=== PATIENT | female | born 1995 | race Caucasian/White ===

== ENCOUNTER → 2025-05-24 | Outpatient (CLI) | payer OTHER, SELFPAY ==
--- OUTSIDE RECORDS SUMMARY | 2025-05-24 21:05 | XMS RPT_ITS | CCD ---
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 Up [171] Fracture [4131] Primary Visit Diagnosis:Closed left ankle fracture, with routine healing, subsequent encounter [Z07.583Q] Prescriptions as of 10/29/2022 - busPIRone (BUSPAR) 5 mg tablet Take 5 mg by mouth twice daily. - sertraline (ZOLOFT) 50 mg tablet sertraline 50 mg tablet TAKE 1 TABLET BY MOUTH DAILY - amitriptyline (ELAVIL) 25 mg tablet Take 25 mg by mouth daily at bedtime. - crutches, aluminum Use as directed. Problem List As Of Date: 10/29/2022 (None) Other instructions from your clinician: You can discontinue wearing the walking boot at night or around the house. You should continue to wear it for the next 2 weeks when you are at work or out and about. After 2 weeks if you are pain-free you can discontinue the boot and increase activity as tolerated. Follow-up if there are any further concerns. Visit Notes: >> Elba Cummings MA Karly Oct 29, 2022 9:22 AM Status: Signed Pt is here for left foot pain. Pt is 5 weeks out from fracturing her foot. Pt states that she feels a whole lot better. Pt denies any pain. Disposition: Return if symptoms worsen or fail to improve. Follow-up and Disposition History for Encounter Date Provider Department Center 10/29/2022 [id number] Encounter Status:Closed by STEFANIE MCINTOSH on 10/29/22 [facility] XR ANKLE 3V AP/LAT/OBL LTon 10-29-2022 XR ANKLE 3V AP/LAT/OBL LT * * *Final Report* * * DATE OF EXAM: Oct 29 2022 9:20AM RNX [id number] - XR ANKLE 3V AP/LAT/OBL LT / PROCEDURE REASON: Pain * * * * Physician Interpretation * * * * XR ANKLE 3V AP/LAT/OBL LT Ordering Physician: STEFANIE MCINTOSH LEFT ANKLE 3 VIEWS Clinical Statement: Pain Comparison: 09/27/2022 FINDINGS: Again demonstrated is an oblique fracture of the distal fibula at the level of the ankle mortise. There has been slight interval osseous remodeling with no significant callus formation. The distal fracture demonstrates minimal lateral displacement measuring less than 2 mm. Fracture lines remaining clearly visible. The ankle mortise is intact. There are no new fractures. IMPRESSION: Oblique fracture distal fibula with mild interval osseous remodeling and no significant callus formation. Fracture lines remain visible. Software Tester: [email or web address] Transcribe Date/Time: Oct 29 2022 9:50A Dictated by : JEFFERY STAPLETON MD This examination was interpreted and the report reviewed and electronically signed by: JEFFERY STAPLETON MD on Oct 29 2022 9:52AM EST [id number] CN [facility] XR Ankle - left AP and Later al and obliqueon 10-29-2022 IMPRESSION: Oblique fracture distal fibula with mild interval osseous remodeling and no significant callus formation. Fracture lines remain visible. Software Tester: [email or web address] Transcribe Date/Time: Oct 29 2022 9:50A Dictated by : JEFFERY STAPLETON MD This examination was interpreted and the report reviewed and electronically signed by: JEFFERY STAPLETON MD on Oct 29 2022 9:52AM EST [facility] * * *Final Report* * * DATE OF EXAM: Oct 29 2022 9:20AM RNX [id number] - XR ANKLE 3V AP/LAT/OBL LT / PROCEDURE REASON: Pain * * * * Physician Interpretation * * * * XR ANKLE 3V AP/LAT/OBL LT Ordering Physician: STEFANIE MCINTOSH LEFT ANKLE 3 VIEWS Clinical Statement: Pain Comparison: 09/27/2022 FINDINGS: Again demonstrated is an oblique fracture of the distal fibula at the level of the ankle mortise. There has been slight interval osseous remodeling with no significant callus formation. The distal fracture demonstrates minimal lateral displacement measuring less than 2 mm. Fracture lines remaining clearly visible. The ankle mortise is intact. There are no new fractures. [facility] Provider, [facility] [place] - 10/29/2022 * * *Final Report* * * DATE OF EXAM: Oct 29 2022 9:20AM RNX [id number] - XR ANKLE 3V AP/LAT/OBL LT / PROCEDURE REASON: Pain * * * * Physician Interpretation * * * * XR ANKLE 3V AP/LAT/OBL LT Ordering Physician: STEFANIE MCINTOSH LEFT ANKLE 3 VIEWS Clinical Statement: Pain Comparison: 09/27/2022 FINDINGS: Again demonstrated is an oblique fracture of the distal fibula at the level of the ankle mortise. There has been slight interval osseous remodeling with no significant callus formation. The distal fracture demonstrates minimal lateral displacement measuring less than 2 mm. Fracture lines remaining clearly visible. The ankle mortise is intact. There are no new fractures. IMPRESSION IMPRESSION: Oblique fracture distal fibula with mild interval osseous remodeling and no significant callus formation. Fracture lines remain visible. Software Tester: [employer] Transcribe Date/Time: Oct 29 2022 9:50A Dictated by : JEFFERY STAPLETON MD This examination was interpreted and the report reviewed and electronically signed by: JEFFERY STAPLETON MD on Oct 29 2022 9:52AM EST [facility] Radiology Study observation (narrative) Brad brady [facility] XR Ankle - left AP and Later al and obliqueOrdered By: Ccf Provider on 10-29-2022 [facility] CNOVon 09-29-2022 CNOV Office Visit ([facility]) BLANCA JANE ([id number]) 1995 F Date Time Provider Department 09/29/22 9:00 AM STEFANIE MCINTOSH During your visit today, we recorded the following information about you: Pulse Weight 106/minute 72.6 kg Stefanie Mcintosh MD 09/29/2022 9:15 AM Signed Blanca Urszula Jane is a 27 year old presenting with Follow Up of the Left Ankle (Lt ankle fx// decreased swelling /10 pain) HPI: Injury occurred last week. Slipped on steps and twisted both ankles has a fracture of the left lateral ankle. Was seen at urgent care. She is put in an stirrup brace and on crutches. Review of Systems Neurological: Negative for sensory change and focal weakness. No past medical history on file. No family history on file. Tobacco Use: Low Risk Smoking Tobacco Use: Never Smokeless Tobacco Use: Never Passive Exposure: Not on file Alcohol Use: Not on file Current Outpatient Medications Medication Sig busPIRone (BUSPAR) 5 mg tablet Take 5 mg by mouth twice daily. sertraline (ZOLOFT) 50 mg tablet sertraline 50 mg tablet TAKE 1 TABLET BY MOUTH DAILY amitriptyline (ELAVIL) 25 mg tablet Take 25 mg by mouth daily at bedtime. crutches, aluminum Use as directed. No current facility-administere d medications for this visit. ALLERGIES No Known Allergies Pulse 106 Wt 160 lb (72.6kg) SpO2 97% LMP 09/13/2022 Physical Exam Musculoskeletal: Comments: Swelling and ecchymosis left ankle lateral malleolus. Tender distal fibula. Limited range of motion. Neurovascular is intact distally. X-rays show a spiral fracture of the distal fibula. Nondisplaced. Ankle mortise is intact. ASSESSMENT/PLAN: 1. Closed left ankle fracture, initial encounter - ICD9: 824.8, ICD10: S82.892A Patient was placed in a tall small walking boot. Patient is to wear the boot at all times other than to shower. She should use crutches for 1 to 2 weeks to assist with ambulation. Take Tylenol or Motrin for pain. Follow-up in 4 weeks for recheck. MD Stefanie Tirado MD 09/29/2022 9:11 AM Signed Wear the walking boot at all times other than to shower. Use crutches for the next 1 to 2 weeks to help with walking and weightbearing. Take Motrin or Tylenol for pain. Follow-up here in 4 weeks for recheck. Referring Provider: SELF [200] Allergies As of Date: 09/29/2022 (No Known Allergies) Date Reviewed: 09/27/2022 Reviewed by: Harvinder Mckeon MD - Fully Assessed Reason for Visit: Follow Up [171] Cmt: Lt ankle fx// decreased swelling 02/08 pain Primary Visit Diagnosis:Closed left ankle fracture, initial encounter [S82.892A] Prescriptions as of 09/29/2022 - busPIRone (BUSPAR) 5 mg tablet Take 5 mg by mouth twice daily. - sertraline (ZOLOFT) 50 mg tablet sertraline 50 mg tablet TAKE 1 TABLET BY MOUTH DAILY - amitriptyline (ELAVIL) 25 mg tablet Take 25 mg by mouth daily at bedtime. - crutches, aluminum Use as directed. Problem List As Of Date: 09/29/2022 (None) Other instructions from your clinician: Wear the walking boot at all times other than to shower. Use crutches for the next 1 to 2 weeks to help with walking and weightbearing. Take Motrin or Tylenol for pain. Follow-up here in 4 weeks for recheck. Disposition: Return for Imaging Before Appointment. Follow-up and Disposition History for Encounter Date Provider Department Center 09/29/2022 [id number] MCINTOSH [facility] Encounter Status:Closed by STEFANIE MCINTOSH on 09/29/22 [facility] No Panel Informationon 09-28 IMPRESSION: No acute osseous abnormality. LEFT FOOT 3 VIEWS: INDICATION: Sprain of foot, initial encounter FINDINGS: No fracture or dislocation involving the foot. Nondisplaced fibular fracture better shown on associated ankle radiographs.. The osseous structures are intact. IMPRESSION: No foot fracture identified. Distal fibular fracture better shown on associated ankle radiographs. LEFT ANKLE 3 VIEWS: INDICATION: Multiple diagnoses FINDINGS: Nondisplaced oblique fracture through the distal fibula extending proximally from the tibiotalar joint. No significant angulation or displacement. There is associated soft tissue swelling. IMPRESSION: Nondisplaced Aguila B fracture distal fibula. RIGHT ANKLE 3 VIEWS: INDICATION: Sprain of the ligament of right ankle, initial encounter FINDINGS: No fracture or dislocation. The osseous structures are intact. The alignment is normal. Soft tissue swelling noted. IMPRESSION: Soft tissue swelling. Negative for fracture. Software Tester: [employer] Transcribe Date/Time: Sep 28 2022 9:19A Dictated by : DANIEL MCKAY MD This examination was interpreted and the report reviewed and electronically signed by: DANIEL MCKAY MD on Sep 28 2022 9:25AM [facility] No Panel InformationOrdered By: Ccf Provider on 09-28-2022 [facility] XR Ankle - left AP and Later al and obliqueon 09-28-2022 * * *Final Report* * * DATE OF EXAM: Sep 27 2022 4:25PM [id number] [id number] - XR ANKLE 3V AP/LAT/OBL LT / PROCEDURE REASON: multiple diagnoses * * * * Physician Interpretation * * * * XR FOOT 3V AP/LAT/OBL RT, XR FOOT 3V AP/LAT/OBL LT, XR ANKLE 3V AP/LAT/OBL RT, XR ANKLE 3V AP/LAT/OBL LT Ordering Physician: HARVINDER MCKEON RIGHT FOOT 3 VIEWS Clinical Statement: Sprain of the ligament, initial encounter FINDINGS: No fracture or dislocation. The osseous structures are intact. The alignment is normal. [facility] Provider, [facility] [place] - 09/28/2022 * * *Final Report* * * DATE OF EXAM: Sep 27 2022 4:25PM [id number] [id number] - XR ANKLE 3V AP/LAT/OBL LT / PROCEDURE REASON: multiple diagnoses * * * * Physician Interpretation * * * * XR FOOT 3V AP/LAT/OBL RT, XR FOOT 3V AP/LAT/OBL LT, XR ANKLE 3V AP/LAT/OBL RT, XR ANKLE 3V AP/LAT/OBL LT Ordering Physician: HARVINDER MCKEON RIGHT FOOT 3 VIEWS Clinical Statement: Sprain of the ligament, initial encounter FINDINGS: No fracture or dislocation. The osseous structures are intact. The alignment is normal. IMPRESSION IMPRESSION: No acute osseous abnormality. LEFT FOOT 3 VIEWS: INDICATION: Sprain of foot, initial encounter FINDINGS: No fracture or dislocation involving the foot. Nondisplaced fibular fracture better shown on associated ankle radiographs.. The osseous structures are intact. IMPRESSION: No foot fracture identified. Distal fibular fracture better shown on associated ankle radiographs. LEFT ANKLE 3 VIEWS: INDICATION: Multiple diagnoses FINDINGS: Nondisplaced oblique fracture through the distal fibula extending proximally from the tibiotalar joint. No significant angulation or displacement. There is associated soft tissue swelling. IMPRESSION: Nondisplaced Aguila B fracture distal fibula. RIGHT ANKLE 3 VIEWS: INDICATION: Sprain of the ligament of right ankle, initial encounter FINDINGS: No fracture or dislocation. The osseous structures are intact. The alignment is normal. Soft tissue swelling noted. IMPRESSION: Soft tissue swelling. Negative for fracture. Software Tester: [employer] Transcribe Date/Time: Sep 28 2022 9:19A Dictated by : DANIEL MCKAY MD This examination was interpreted and the report reviewed and electronically signed by: DANIEL MCKAY MD on Sep 28 2022 9:25AM EST [facility] XR Ankle - right AP and Late ral and obliqueon 09-28-2022 * * *Final Report* * * DATE OF EXAM: Sep 27 2022 4:25PM [id number] [id number] - XR ANKLE 3V AP/LAT/OBL RT / PROCEDURE REASON: Sprain of ligament of right ankle, initial encounter * * * * Physician Interpretation * * * * XR FOOT 3V AP/LAT/OBL RT, XR FOOT 3V AP/LAT/OBL LT, XR ANKLE 3V AP/LAT/OBL RT, XR ANKLE 3V AP/LAT/OBL LT Ordering Physician: HARVINDER MCKEON RIGHT FOOT 3 VIEWS Clinical Statement: Sprain of the ligament, initial encounter FINDINGS: No fracture or dislocation. The osseous structures are intact. The alignment is normal. [facility] Provider, [facility] [place] - 09/28/2022 * * *Final Report* * * DATE OF EXAM: Sep 27 2022 4:25PM [id number] [id number] - XR ANKLE 3V AP/LAT/OBL RT / PROCEDURE REASON: Sprain of ligament of right ankle, initial encounter * * * * Physician Interpretation * * * * XR FOOT 3V AP/LAT/OBL RT, XR FOOT 3V AP/LAT/OBL LT, XR ANKLE 3V AP/LAT/OBL RT, XR ANKLE 3V AP/LAT/OBL LT Ordering Physician: HARVINDER MCKEON RIGHT FOOT 3 VIEWS Clinical Statement: Sprain of the ligament, initial encounter FINDINGS: No fracture or dislocation. The osseous structures are intact. The alignment is normal. IMPRESSION IMPRESSION: No acute osseous abnormality. LEFT FOOT 3 VIEWS: INDICATION: Sprain of foot, initial encounter FINDINGS: No fracture or dislocation involving the foot. Nondisplaced fibular fracture better shown on associated ankle radiographs.. The osseous structures are intact. IMPRESSION: No foot fracture identified. Distal fibular fracture better shown on associated ankle radiographs. LEFT ANKLE 3 VIEWS: INDICATION: Multiple diagnoses FINDINGS: Nondisplaced oblique fracture through the distal fibula extending proximally from the tibiotalar joint. No significant angulation or displacement. There is associated soft tissue swelling. IMPRESSION: Nondisplaced Aguila B fracture distal fibula. RIGHT ANKLE 3 VIEWS: INDICATION: Sprain of the ligament of right ankle, initial encounter FINDINGS: No fracture or dislocation. The osseous structures are intact. The alignment is normal. Soft tissue swelling noted. IMPRESSION: Soft tissue swelling. Negative for fracture. Software Tester: [employer] Transcribe Date/Time: Sep 28 2022 9:19A Dictated by : DANIEL MCKAY MD This examination was interpreted and the report reviewed and electronically signed by: DANIEL MCKAY MD on Sep 28 2022 9:25AM [facility] XR Foot - left AP and Latera l and obliqueon 09-28-2022 * * *Final Report* * * DATE OF EXAM: Sep 27 2022 4:25PM [id number] [id number] - XR FOOT 3V AP/LAT/OBL LT / PROCEDURE REASON: Sprain of left foot, initial encounter * * * * Physician Interpretation * * * * XR FOOT 3V AP/LAT/OBL RT, XR FOOT 3V AP/LAT/OBL LT, XR ANKLE 3V AP/LAT/OBL RT, XR ANKLE 3V AP/LAT/OBL LT Ordering Physician: HARVINDER MCKEON RIGHT FOOT 3 VIEWS Clinical Statement: Sprain of the ligament, initial encounter FINDINGS: No fracture or dislocation. The osseous structures are intact. The alignment is normal. [facility] Provider, [facility] [place] - 09/28/2022 * * *Final Report* * * DATE OF EXAM: Sep 27 2022 4:25PM [id number] [id number] - XR FOOT 3V AP/LAT/OBL LT / PROCEDURE REASON: Sprain of left foot, initial encounter * * * * Physician Interpretation * * * * XR FOOT 3V AP/LAT/OBL RT, XR FOOT 3V AP/LAT/OBL LT, XR ANKLE 3V AP/LAT/OBL RT, XR ANKLE 3V AP/LAT/OBL LT Ordering Physician: HARVINDER MCKEON RIGHT FOOT 3 VIEWS Clinical Statement: Sprain of the ligament, initial encounter FINDINGS: No fracture or dislocation. The osseous structures are intact. The alignment is normal. IMPRESSION IMPRESSION: No acute osseous abnormality. LEFT FOOT 3 VIEWS: INDICATION: Sprain of foot, initial encounter FINDINGS: No fracture or dislocation involving the foot. Nondisplaced fibular fracture better shown on associated ankle radiographs.. The osseous structures are intact. IMPRESSION: No foot fracture identified. Distal fibular fracture better shown on associated ankle radiographs. LEFT ANKLE 3 VIEWS: INDICATION: Multiple diagnoses FINDINGS: Nondisplaced oblique fracture through the distal fibula extending proximally from the tibiotalar joint. No significant angulation or displacement. There is associated soft tissue swelling. IMPRESSION: Nondisplaced Aguila B fracture distal fibula. RIGHT ANKLE 3 VIEWS: INDICATION: Sprain of the ligament of right ankle, initial encounter FINDINGS: No fracture or dislocation. The osseous structures are intact. The alignment is normal. Soft tissue swelling noted. IMPRESSION: Soft tissue swelling. Negative for fracture. Software Tester: [employer] Transcribe Date/Time: Sep 28 2022 9:19A Dictated by : DANIEL MCKAY MD This examination was interpreted and the report reviewed and electronically signed by: DANIEL MCKAY MD on Sep 28 2022 9:25AM EST [facility] XR Foot - right AP and Later al and obliqueon 09-28-2022 * * *Final Report* * * DATE OF EXAM: Sep 27 2022 4:25PM [id number] [id number] - XR FOOT 3V AP/LAT/OBL RT / PROCEDURE REASON: multiple diagnoses * * * * Physician Interpretation * * * * XR FOOT 3V AP/LAT/OBL RT, XR FOOT 3V AP/LAT/OBL LT, XR ANKLE 3V AP/LAT/OBL RT, XR ANKLE 3V AP/LAT/OBL LT Ordering Physician: HARVINDER MCKEON RIGHT FOOT 3 VIEWS Clinical Statement: Sprain of the ligament, initial encounter FINDINGS: No fracture or dislocation. The osseous structures are intact. The alignment is normal. [facility] Provider, [facility] [place] - 09/28/2022 * * *Final Report* * * DATE OF EXAM: Sep 27 2022 4:25PM [id number] [id number] - XR FOOT 3V AP/LAT/OBL RT / PROCEDURE REASON: multiple diagnoses * * * * Physician Interpretation * * * * XR FOOT 3V AP/LAT/OBL RT, XR FOOT 3V AP/LAT/OBL LT, XR ANKLE 3V AP/LAT/OBL RT, XR ANKLE 3V AP/LAT/OBL LT Ordering Physician: HARVINDER MCKEON RIGHT FOOT 3 VIEWS Clinical Statement: Sprain of the ligament, initial encounter FINDINGS: No fracture or dislocation. The osseous structures are intact. The alignment is normal. IMPRESSION IMPRESSION: No acute osseous abnormality. LEFT FOOT 3 VIEWS: INDICATION: Sprain of foot, initial encounter FINDINGS: No fracture or dislocation involving the foot. Nondisplaced fibular fracture better shown on associated ankle radiographs.. The osseous structures are intact. IMPRESSION: No foot fracture identified. Distal fibular fracture better shown on associated ankle radiographs. LEFT ANKLE 3 VIEWS: INDICATION: Multiple diagnoses FINDINGS: Nondisplaced oblique fracture through the distal fibula extending proximally from the tibiotalar joint. No significant angulation or displacement. There is associated soft tissue swelling. IMPRESSION: Nondisplaced Aguila B fracture distal fibula. RIGHT ANKLE 3 VIEWS: INDICATION: Sprain of the ligament of right ankle, initial encounter FINDINGS: No fracture or dislocation. The osseous structures are intact. The alignment is normal. Soft tissue swelling noted. IMPRESSION: Soft tissue swelling. Negative for fracture. Software Tester: [employer] Transcribe Date/Time: Sep 28 2022 9:19A Dictated by : DANIEL MCKAY MD This examination was interpreted and the report reviewed and electronically signed by: DANIEL MCKAY MD on Sep 28 2022 9:25AM EST [facility] CNOVon 09-27-2022 CNOV Office Visit ([facility]) BLANCA JANE ([id number]) 1995 F Date Time Provider Department 09/27/22 1:30 PM HARVINDER MCKEON [facility] During your visit today, we recorded the following information about you: Temperature Pulse Respiration Blood pressure 97.2 degrees 97/minute 16/minute 150/81 Weight Last Period 72.6 kg 09/13/22 Harvinder Mckeon MD 09/27/2022 4:40 PM Signed Blanca Paniaguaopal is a 27 year old female who presents with bilat ankle pain (Swelling from fall) She is a 19-year-old female presenting today with bilateral ankle and bilateral foot pain after injury over Thanksgiving. She reports that she was in her porch when she missed a step twisting her ankles and feet. Left worse than right extremity. She has pain swelling bruising bilateral regions of both ankles and feet. She is able to bear weight. No prior injuries. History reviewed. No pertinent past medical history. There is no problem list on file for this patient. Current Outpatient Medications Medication Sig Dispense Refill busPIRone (BUSPAR) 5 mg tablet Take 5 mg by mouth twice daily. sertraline (ZOLOFT) 50 mg tablet sertraline 50 mg tablet TAKE 1 TABLET BY MOUTH DAILY amitriptyline (ELAVIL) 25 mg tablet Take 25 mg by mouth daily at bedtime. No current facility-administere d medications for this visit. Social History Tobacco Use Smoking status: Never Smokeless tobacco: Never Alcohol Use: Not on file Tobacco Use: Never History reviewed. No pertinent family history. Review of Systems Constitutional: Negative for fever. Respiratory: Negative for shortness of breath. Cardiovascular: Negative for chest pain. Musculoskeletal: Injuries bilateral ankle and feet. Neurological: Negative for dizziness and headaches. BP 150/81 Pulse 97 Temp (Src) 97.2 (Temporal) Resp 16 Wt 160 lb (72.6kg) SpO2 98% LMP 09/13/2022 Physical Exam Vitals and nursing note reviewed. Constitutional: Comments: PHYSICAL EXAMINATION: GENERAL:The patient is alert oriented in no acute distress. HEAD:Head is atraumatic normocephalic. EYES: Normal sclerae and conjunctivae. LUNGS: No labored breathing. MUSCULOSKELETAL: Examination of the ankles revealed bruising, swelling and tenderness mainly over the lateral malleoli. Examination of the feet revealed bruising and swelling along the medial and lateral regions of feet. She is able to move her toes. Neurovascular status intact distally. Bilateral Achilles tendon intact. She has full dorsiflexion, plantarflexion, inversion and eversion with pain. Neurovascular status intact distally. She is ambulatory. SKIN: Warm and dry no clubbing cyanosis or edema. NEUROLOGY: Cranial nerves II through XII grossly intact without any focal neurological deficits. PSYCHIATRY: Cooperative. Normal mood and affect. X-ray showed fracture left lateral malleolus. Normal right ankle and bilateral feet. Second read by the radiologist is pending. Aircast placed in the left ankle. I wrote a prescription of crutches. Patient was instructed to follow-up with musculoskeletal clinic she will call first thing in the morning tomorrow and get an appointment. If she does not get an appointment in the next week or so she will call [facility] or [facility] orthopedics. Rest ice elevation. OTC pain medication recommended. Discharged in stable condition. ASSESSMENT/PLAN: 1. Sprain of ligament of left ankle, initial encounter - ICD9: 845.00, ICD10: S93.402A (primary diagnosis) - XR ANKLE GENERAL 3V AP/LAT/OBL LEFT 2. Sprain of left foot, initial encounter - ICD9: 845.10, ICD10: S93.602A - XR FOOT GENERAL 3V AP/LAT/OBL RIGHT - XR FOOT GENERAL 3V AP/LAT/OBL LEFT 3. Sprain of ligament of right ankle, initial encounter - ICD9: 845.00, ICD10: S93.401A - XR ANKLE GENERAL 3V AP/LAT/OBL RIGHT - XR ANKLE GENERAL 3V AP/LAT/OBL LEFT 4. Sprain of right foot, initial encounter - ICD9: 845.10, ICD10: S93.601A - XR FOOT GENERAL 3V AP/LAT/OBL RIGHT Harvinder Mckeon MD 09/27/2022 4:15 PM Signed Call [facility] and make a follow-up appointment with [facility]. The number is [phone] Option 1 OR [phone]. Carmen Olsen LPN 09/27/2022 4:40 PM Signed Air stirrup applied to left foot. Patient tolerate well. Carmen Olsen LPN Referring Provider: SELF [[id number]] Allergies As of Date: 09/27/2022 (No Known Allergies) Date Reviewed: 09/27/2022 Reviewed by: Harvinder Mckeon MD - Fully Assessed Reason for Visit: bilat ankle pain [Other] Cmt: Swelling from fall Primary Visit Diagnosis:Sprain of ligament of left ankle, initial encounter [S93.402A] Other Visit Diagnoses:Sprain of left foot, initial encounter [S93.602A] Sprain of ligament of right ankle, initial encounter [S93.401A] Sprain of right foot, initial encounter [S93.601A] Closed (more content not included)... [facility] No Panel Informationon 09-27 Radiology Study observation (narrative) Brad brady [facility] XR ANKLE 3V AP/LAT/OBL LTon 09-27-2022 XR ANKLE 3V AP/LAT/OBL LT * * *Final Report* * * DATE OF EXAM: Sep 27 2022 4:25PM RNX [id number] - XR ANKLE 3V AP/LAT/OBL LT / PROCEDURE REASON: multiple diagnoses * * * * Physician Interpretation * * * * XR FOOT 3V AP/LAT/OBL RT, XR FOOT 3V AP/LAT/OBL LT, XR ANKLE 3V AP/LAT/OBL RT, XR ANKLE 3V AP/LAT/OBL LT Ordering Physician: HARVINDER MCKEON RIGHT FOOT 3 VIEWS Clinical Statement: Sprain of the ligament, initial encounter FINDINGS: No fracture or dislocation. The osseous structures are intact. The alignment is normal. IMPRESSION: No acute osseous abnormality. LEFT FOOT 3 VIEWS: INDICATION: Sprain of foot, initial encounter FINDINGS: No fracture or dislocation involving the foot. Nondisplaced fibular fracture better shown on associated ankle radiographs.. The osseous structures are intact. IMPRESSION: No foot fracture identified. Distal fibular fracture better shown on associated ankle radiographs. LEFT ANKLE 3 VIEWS: INDICATION: Multiple diagnoses FINDINGS: Nondisplaced oblique fracture through the distal fibula extending proximally from the tibiotalar joint. No significant angulation or displacement. There is associated soft tissue swelling. IMPRESSION: Nondisplaced Aguila B fracture distal fibula. RIGHT ANKLE 3 VIEWS: INDICATION: Sprain of the ligament of right ankle, initial encounter FINDINGS: No fracture or dislocation. The osseous structures are intact. The alignment is normal. Soft tissue swelling noted. IMPRESSION: Soft tissue swelling. Negative for fracture. Software Tester: [place] Transcribe Date/Time: Sep 28 2022 9:19A Dictated by : DANIEL MCKAY MD This examination was interpreted and the report reviewed and electronically signed by: DANIEL MCKAY MD on Sep 28 2022 9:25AM EST [id number] CN [facility] XR ANKLE 3V AP/LAT/OBL RTon 09-27-2022 XR ANKLE 3V AP/LAT/OBL RT * * *Final Report* * * DATE OF EXAM: Sep 27 2022 4:25PM RNX [id number] - XR ANKLE 3V AP/LAT/OBL RT / PROCEDURE REASON: Sprain of ligament of right ankle, initial encounter * * * * Physician Interpretation * * * * XR FOOT 3V AP/LAT/OBL RT, XR FOOT 3V AP/LAT/OBL LT, XR ANKLE 3V AP/LAT/OBL RT, XR ANKLE 3V AP/LAT/OBL LT Ordering Physician: HARVINDER MCKEON RIGHT FOOT 3 VIEWS Clinical Statement: Sprain of the ligament, initial encounter FINDINGS: No fracture or dislocation. The osseous structures are intact. The alignment is normal. IMPRESSION: No acute osseous abnormality. LEFT FOOT 3 VIEWS: INDICATION: Sprain of foot, initial encounter FINDINGS: No fracture or dislocation involving the foot. Nondisplaced fibular fracture better shown on associated ankle radiographs.. The osseous structures are intact. IMPRESSION: No foot fracture identified. Distal fibular fracture better shown on associated ankle radiographs. LEFT ANKLE 3 VIEWS: INDICATION: Multiple diagnoses FINDINGS: Nondisplaced oblique fracture through the distal fibula extending proximally from the tibiotalar joint. No significant angulation or displacement. There is associated soft tissue swelling. IMPRESSION: Nondisplaced Aguila B fracture distal fibula. RIGHT ANKLE 3 VIEWS: INDICATION: Sprain of the ligament of right ankle, initial encounter FINDINGS: No fracture or dislocation. The osseous structures are intact. The alignment is normal. Soft tissue swelling noted. IMPRESSION: Soft tissue swelling. Negative for fracture. Software Tester: [place] Transcribe Date/Time: Sep 28 2022 9:19A Dictated by : DANIEL MCKAY MD This examination was interpreted and the report reviewed and electronically signed by: DANIEL MCKAY MD on Sep 28 2022 9:25AM EST [id number] [facility] XR FOOT 3V AP/LAT/OBL LTon 1 11-27-2021 XR FOOT 3V AP/LAT/OBL LT * * *Final Report* * * DATE OF EXAM: Sep 27 2022 4:25PM RNX [id number] - XR FOOT 3V AP/LAT/OBL LT / PROCEDURE REASON: Sprain of left foot, initial encounter * * * * Physician Interpretation * * * * XR FOOT 3V AP/LAT/OBL RT, XR FOOT 3V AP/LAT/OBL LT, XR ANKLE 3V AP/LAT/OBL RT, XR ANKLE 3V AP/LAT/OBL LT Ordering Physician: HARVINDER MCKEON RIGHT FOOT 3 VIEWS Clinical Statement: Sprain of the ligament, initial encounter FINDINGS: No fracture or dislocation. The osseous structures are intact. The alignment is normal. IMPRESSION: No acute osseous abnormality. LEFT FOOT 3 VIEWS: INDICATION: Sprain of foot, initial encounter FINDINGS: No fracture or dislocation involving the foot. Nondisplaced fibular fracture better shown on associated ankle radiographs.. The osseous structures are intact. IMPRESSION: No foot fracture identified. Distal fibular fracture better shown on associated ankle radiographs. LEFT ANKLE 3 VIEWS: INDICATION: Multiple diagnoses FINDINGS: Nondisplaced oblique fracture through the distal fibula extending proximally from the tibiotalar joint. No significant angulation or displacement. There is associated soft tissue swelling. IMPRESSION: Nondisplaced Aguila B fracture distal fibula. RIGHT ANKLE 3 VIEWS: INDICATION: Sprain of the ligament of right ankle, initial encounter FINDINGS: No fracture or dislocation. The osseous structures are intact. The alignment is normal. Soft tissue swelling noted. IMPRESSION: Soft tissue swelling. Negative for fracture. Software Tester: [place] Transcribe Date/Time: Sep 28 2022 9:19A Dictated by : DANIEL MCKAY MD This examination was interpreted and the report reviewed and electronically signed by: DANIEL MCKAY MD on Sep 28 2022 9:25AM EST [id number] CN [facility] XR FOOT 3V AP/LAT/OBL RTon 1 11-27-2021 XR FOOT 3V AP/LAT/OBL RT * * *Final Report* * * DATE OF EXAM: Sep 27 2022 4:25PM RNX [id number] - XR FOOT 3V AP/LAT/OBL RT / PROCEDURE REASON: multiple diagnoses * * * * Physician Interpretation * * * * XR FOOT 3V AP/LAT/OBL RT, XR FOOT 3V AP/LAT/OBL LT, XR ANKLE 3V AP/LAT/OBL RT, XR ANKLE 3V AP/LAT/OBL LT Ordering Physician: HARVINDER MCKEON RIGHT FOOT 3 VIEWS Clinical Statement: Sprain of the ligament, initial encounter FINDINGS: No fracture or dislocation. The osseous structures are intact. The alignment is normal. IMPRESSION: No acute osseous abnormality. LEFT FOOT 3 VIEWS: INDICATION: Sprain of foot, initial encounter FINDINGS: No fracture or dislocation involving the foot. Nondisplaced fibular fracture better shown on associated ankle radiographs.. The osseous structures are intact. IMPRESSION: No foot fracture identified. Distal fibular fracture better shown on associated ankle radiographs. LEFT ANKLE 3 VIEWS: INDICATION: Multiple diagnoses FINDINGS: Nondisplaced oblique fracture through the distal fibula extending proximally from the tibiotalar joint. No significant angulation or displacement. There is associated soft tissue swelling. IMPRESSION: Nondisplaced Aguila B fracture distal fibula. RIGHT ANKLE 3 VIEWS: INDICATION: Sprain of the ligament of right ankle, initial encounter FINDINGS: No fracture or dislocation. The osseous structures are intact. The alignment is normal. Soft tissue swelling noted. IMPRESSION: Soft tissue swelling. Negative for fracture. Software Tester: [place] Transcribe Date/Time: Sep 28 2022 9:19A Dictated by : DANIEL MCKAY MD This examination was interpreted and the report reviewed and electronically signed by: DANIEL MCKAY MD on Sep 28 2022 9:25AM EST [id number] CN [facility] 11-26-[address] [facility] DATE OF SERVICE: 11/26/2017PROBLEM: Rash.Patient noticed a rash starting 4 days ago on the back. It involves the left side.She states that she has some pain with this, also some itching. She gets sensitivitywhen it is touched.No fever. No chills. No insect bites.ALLERGIES: None.LAST MENSTRUAL PERIOD: A week ago.SOCIAL HISTORY: Nonsmoker.PAST MEDICAL/REVIEW OF SYSTEMS: Generally healthy.MEDICATIONS: control.PHYSICAL EXAMINATION:General: She is alert, appropriate, in no acute distress. Looks well.Skin: Warm and dry.HEENT: Mucous membranes are moist and pink. Sclerae are white.Vital Signs: Blood pressure 155/84, pulse 109, respirations 16, temperature 97.7,pulse oximetry 99% on room air.Skin: She has got a crop of papular type rash noted on the left lower thoracic levelof her back. She has hyperesthesia to that area as well as the whole dermatome onthe lateral and anterior aspect of her thorax. No other areas of rash. There is noscabbing.IMPRESSIO N: Acute shingles.I prescribed valacyclovir for patient. She works in a day care. Advised her thatshe needs to be off until there are no new bumps and it is scabbing over. Sheunderstood instructions and discharged in good condition with instructions to followwith a referral given. FRANCINE Huffman/[id number]: 11/26/2017 10:16 [facility] PATIENT NAME: BLANCA JANE MaikLuigi Belgica Zamudio [facility] REC #: [id number], [place] [address] [facility] PHYSICIANDT: 11/26/2017 13:03[facility]I File#: [id number] #: [id number] 11/30/17 1547 LAUREN [facility] PATIENT NAME: BLANCA JANE Belgica Zamudio MEDICAL REC #: [id number], [place] [address] [facility] RE[facility] PHYSICIAN Normal [facility] [place] MUMPS IGG ABon 06-21-2017 MUMPS IGG AB 13.9 AU/mL Normal Immune >10.9 [facility] Comment on above: Order Comment: Rizwana s: NC: LAB Result Comment: Nega tive <9.0 Equivocal 9.0 - 10.9 Positive >10.9A positive result generally indicates past exposure toMumps virus or previous vaccination. Performed By: #### L 750.92950, L750.26049, L750.38829 ####[facility] [id number] [place] [place] [address]Sn# [phone] RUBEOLA IGG ABon 06-21-2017 RUBEOLA IGG AB 243.0 AU/mL Normal Immune >29.9 [facility] Comment on above: Order Comment: Rizwana s: NC: LAB Result Comment: Nega tive <25.0 Equivocal 25.0 - 29.9 Positive >29.9Presence of antibodies to Rubeola is presumptive evidenceof immunity except when acute infection is suspected.Performed At: [facility] [facility], [place] [id number] Vincent [id number] Performed By: #### L 750.47958, L750.23383, L750.03496 ####[facility] [id number] [place] [address]Xm# [phone] V ZOSTER IGG ABon 06-21-2017 V ZOSTER IGG AB 567 index Normal Immune >165 [facility] Comment on above: Order Comment: Rizwana s: NC: LAB Result Comment: Nega tive <135 Equivocal 135 - 165 Positive >165A positive result generally indicates exposure to thepathogen or administration of specific immunoglobulins,but it is not indication of active infection or stageof disease. Performed By: #### L 750.03331, L750.21354, L750.24237 ####[facility] [id number] [place] [place] [address]Tw# [phone] RUBELLA IGG ABon 06-17-2017 RUBELLA IGG AB IMMUNE Normal [facility] [place] Comment on above: Order Comment: Campu s: NC Result Comment: <5 I U/ML- Non-Immune for IgG antibodies to Rubella Virus.>= 5-9.9 IU/ML- Equivocal for IgG antibodies to Rubella Virus. Obtain a new specimen and test using Centaur Rubella IgG assay.>= 10 IU/ML- Immune for IgG antibodies to Rubella Virus. Performed By: #### L 705.98350 ####[facility] [id number] [place], [place] [address]Ls# [phone] Vital Signs Date Time Vital Sign Value Performing Clinician Faci lity 09-27-2022 15:14-0500 Body temperature 97.2 [degF] Harvinder Mckeon MD Work Phone: [facility] 09-27-2022 15:14-0500 Body weight 72.58 kg Harvinder Mckeon MD Work Phone: [facility] 09-27-2022 15:14-0500 Diastolic blood pressure 81 mm[Hg] Harvinder Mckeon MD Work Phone: [facility] 09-27-2022 15:14-0500 Heart rate 97 /min Harvinder Mckeon MD Work Phone: [facility] 09-27-2022 15:14-0500 Respiratory rate 16 /min Harvinder Mckeon MD Work Phone: [facility] 09-27-2022 15:14-0500 SaO2% (BldA) [Mass fraction] 98 % Harvinder Mckeon MD Work Phone: [facility] 09-27-2022 15:14-0500 Systolic blood pressure 150 mm[Hg] Harvinder Mckeon MD Work Phone: [facility] Encounters Encounter Date Encounter Type Care Provider Facility Start: 04-12-2025 End: 04-12-2025 ambulatory Dallas Fung Facility:[facility] Start: 03-12-2025 End: 03-12-2025 ambulatory Dallas Fung Facility:[facility] Start: 10-27-2024 End: 10-31-2024 ambulatory DEBBIE MCNEILL Facility:A Start: 10-10-2024 End: 10-14-2024 ambulatory NONE PHYSICIAN Facility:A Start: 05-03-2024 End: 05-07-2024 ambulatory DEBBIE MCNEILL Facility:[facility] Start: 04-21-2024 End: 04-21-2024 ambulatory KANIKA MACEDO NUBIA Facility:[facility] Start: 10-02-2023 End: 10-06-2023 ambulatory DEBBIE MCNEILL Facility:A Start: 08-27-2023 End: 08-31-2023 ambulatory AMALIA ACOSTA [employer] Facility:[facility] Start: 08-27-2023 End: 08-31-2023 Encounter for gynecological examination (general) (routine) without abnormal findings AMALIA 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 [employer] NURSING INSTRUCTOR Facility:A Start: 02-23-2023 End: 02-23-2023 ambulatory Facility:[facility] Start: 10-29-2022 End: 10-29-2022 ambulatory STEFANIE MCINTOSH Facility:[id number] Start: 10-29-2022 End: 10-29-2022 Subsequent hospital visit by physician [facility] Work Phone: [facility] Comment on above: Pain [R52] Start: 09-29-2022 End: 09-29-2022 ambulatory STEFANIE MCINTOSH Facility:[id number] Start: 09-27-2022 ambulatory HARVINDER MCKEON Facility:[id number] Start: 09-27-2022 End: 09-27-2022 Subsequent hospital visit by physician [facility] Work Phone: [facility] Comment on above: BILAT SWOLLEN ANKLES . LT WORSE THAN RT. Start: 09-27-2022 End: 09-27-2022 ambulatory HARVINDER MCKEON Facility:[id number] Start: 09-27-2022 End: 09-27-2022 Patient encounter procedure Harvinder Mckeon MD Work Phone: [facility] Comment on above: Sprain of ligament o f left ankle, initial encounter (Primary Dx); Sprain of left foot, initial encounter; Sprain of ligament of right ankle, initial encounter; Sprain of right foot, initial encounter; Closed nondisplaced fracture of lateral malleolus of left fibula, initial encounter Start: 11-26-2017 Ambulatory Padmini Michelle Facility :[facility] Start: 06-17-2017 Ambulatory Bairon Tristan Facility:[facility] Procedures Date Procedure Procedure Detail Performing Clinician Start: 10-29-2022 Radex ankle complete minimum 3 views Stefanie Mcintosh MD Work Phone: Start: 09-27-2022 Radex ankle complete minimum 3 views Harvinder Mckeon MD Work Phone: Start: 09-27-2022 Radex ankle complete minimum 3 views Harvinder Mckeon MD Work Phone: Plan of Treatment Date Care Activity Detail Author Start: 07-02-2024 Covid-19 Vaccine ( season) Covid-19 Vaccine () [facility] Start: 07-02-2024 Influenza vaccination Influenza Vacc ine (#1) [facility] Start: 07-02-2022 Influenza vaccination INFLUENZA (#1) [facility] Start: 11-01-2021 DEPRESSION ASSESSMENT DEPRESSION ASS ESSMENT [facility] Start: 04-10-2021 COVID-19 VACCINE (3 - Booster for Pfizer series) COVID-19 VACCINE (3 - Booster for Pfizer series) [facility] Start: 03-31-2019 PAP TESTING PAP TESTING [facility] Start: 03-31-2019 Screening for malign ant neoplasm of cervix Cervical Cancer Screening [facility] Start: 2013 Urine microalbumin profile DTAP,TDAP,TD (1 - Tdap) [facility] Start: 2012 Anxiety Screening Anxiety Screening [facility] Start: 2012 Depression Screening Depression Scre ening [facility] Start: 2012 HEPATITIS C SCREENING HEPATITIS C [facility] Start: 2012 Hepatitis C screening Hepatitis C [facility] Start: 2012 HIV SCREENING HIV SCREENING [facility] Start: 2012 HIV screening HIV Screening [facility] Start: 2005 Urine microalbumin profile DTaP,Tdap,Td Vaccine (5 - Tdap) [facility] Start: 1994 HEPATITIS B (1 of 3 - 3-dose series) HEPATITIS B (1 of 3 - 3-dose series) [facility] End: 10-27-2023 XR ANKLE GENERAL 3V AP/LAT/OBL LEFT XR ANKLE GENERAL 3V AP/LAT/OBL LEFT Radiology Routine Sprain of ligament of left ankle, initial encounter Sprain of ligament of right ankle, initial encounter 1 Occurrences starting 09/27/2022 until 10/27/2023 [facility] Work Phone: Comment on above: 1 Occurrences starti ng 09/27/2022 until 10/27/2023 XR ANKLE GENERAL 3V AP/LAT/OBL LEFT XR ANKLE GENERAL 3V AP/LAT/OBL LEFT Radiology Routine Sprain of ligament of left ankle, initial encounter Sprain of ligament of right ankle, initial encounter 09/27/2022 4:25 PM EST [facility] Work Phone: End: 10-27-2023 XR ANKLE GENERAL 3V AP/LAT/OBL RIGHT XR ANKLE GENERAL 3V AP/LAT/OBL RIGHT Radiology Routine Sprain of ligament of right ankle, initial encounter 1 Occurrences starting 09/27/2022 until 10/27/2023 [facility] Work Phone: Comment on above: 1 Occurrences starti ng 09/27/2022 until 10/27/2023 XR ANKLE GENERAL 3V AP/LAT/OBL RIGHT XR ANKLE GENERAL 3V AP/LAT/OBL RIGHT Radiology Routine Sprain of ligament of right ankle, initial encounter 09/27/2022 4:25 PM EST [facility] Work Phone: End: 10-27-2023 XR FOOT GENERAL 3V AP/LAT/OBL LEFT XR FOOT GENERAL 3V AP/LAT/OBL LEFT Radiology Routine Sprain of left foot, initial encounter 1 Occurrences starting 09/27/2022 until 10/27/2023 [facility] Work Phone: Comment on above: 1 Occurrences starti ng 09/27/2022 until 10/27/2023 XR FOOT GENERAL 3V AP/LAT/OBL LEFT XR FOOT GENERAL 3V AP/LAT/OBL LEFT Radiology Routine Sprain of left foot, initial encounter 09/27/2022 4:25 PM EST [facility] Work Phone: End: 10-27-2023 XR FOOT GENERAL 3V AP/LAT/OBL RIGHT XR FOOT GENERAL 3V AP/LAT/OBL RIGHT Radiology Routine Sprain of left foot, initial encounter Sprain of right foot, initial encounter 1 Occurrences starting 09/27/2022 until 10/27/2023 [facility] Work Phone: Comment on above: 1 Occurrences starti ng 09/27/2022 until 10/27/2023 XR FOOT GENERAL 3V AP/LAT/OBL RIGHT XR FOOT GENERAL 3V AP/LAT/OBL RIGHT Radiology Routine Sprain of left foot, initial encounter Sprain of right foot, initial encounter 09/27/2022 4:25 PM EST [facility] Work Phone: Immunizations Immunization Date Immunization Notes Care Provider Daly ponce 10-22-2022 influenza virus vacc ine, unspecified formulation Xr Kathy Work Phone: [facility] Payers Date Payer Category Payer Self-pay 2023 Unknown [id number] 2022 Unknown [id number] 2022 Unknown [employer] P[employer] [id number] 2022-Present [phone] [address] [place] [address] PPO [id number] 1994 Unknown [id number] 1994 Unknown [id number] 1994 Unknown [id number] 1994 Unknown [id number] 1994 Unknown [id number] 1994 Unknown [id number] Unknown [id number] Unknown [id number] Social History Date Type Detail Facility Start: 09-27-2022 Tobacco smoking stat [facility] Never smoked tobacco [facility] Start: 09-27-2022 Tobacco use and exposure Smoke less tobacco non-user [facility] Start: 1995 Sex Assigned At Not on file C [facility] Start: 09-17-2022 End: 09-29-2022 Exposure to SARS-CoV-2 (event) Not sure [facility] Start: 09-27-2022 End: 09-29-2022 History of Social function [facility] Start: 09-27-2022 End: 09-29-2022 Tobacco use panel [facility] Clinical Notes 09-27-2022 to 10-13-2024 Cheryl Khan RT(R) - 10/29/2022 9:00 AM Arti Olsen LPN - 09/27/2022 4:27 PM Garth Mckeon MD - 09/27/2022 3:39 PM ESTPatient Instructions Note Date & Type Note Facility 10-13-2024 Note . MICRO - Microbiology PROCEDURE: Urine Culture [*1] SOURCE: Urine BODY SITE: COLLECTED DATE/TIME: 10/10/2024 09:26 EST RECEIVED DATE/TIME: 10/11/2024 08:05 EST START DATE/TIME: 10/11/2024 08:06 EST FREE TEXT SOURCE: FINAL REPORTS Final Report [] Verified Date/Time/Personnel: 10/13/2024 08:45 EST No growth at 48 hours. PRELIMINARY REPORTS Preliminary Report [] Verified Date/Time/Personnel: 10/12/2024 09:12 EST No growth to date Performing Locations *1: This test was performed at: [facility], [address] [place] [address], [facility] , [facility] 05-06-2024 Note . MICRO - Microbiology PROCEDURE: Urine Culture [*1] SOURCE: Urine BODY SITE: COLLECTED DATE/TIME: 05/03/2024 09:00 EDT RECEIVED DATE/TIME: 05/03/2024 16:23 EDT START DATE/TIME: 05/03/2024 16:23 EDT FREE TEXT SOURCE: FINAL REPORTS Final Report [] Verified Date/Time/Personnel: 05/06/2024 08:36 EDT 50,000 - 100,000 cfu/ml Escherichia coli 50,000 - 100,000 cfu/ml Staphylococcus aureus PRELIMINARY REPORTS Preliminary Report [] Verified Date/Time/Personnel: 05/05/2024 09:40 EDT 50,000 - 100,000 cfu/ml Escherichia coli JUDI to follow 50,000 - 100,000 cfu/ml Staphylococcus aureus JUDI to follow Preliminary Report [] Verified Date/Time/Personnel: 05/04/2024 14:06 EDT Culture results pending. SUSCEPTIBILITY RESULTS Escherichia coli Antibiotic JUDI Dilut JUDI Inter Ampicillin >16 Resistant Ampicillin/ 8/4 Susceptible Sulbactam Aztreonam <=4 Susceptible Cefazolin <=2 Susceptible Ciprofloxacin <=0.25 Susceptible Ertapenem <=0.5 Susceptible Gentamicin <=2 Susceptible ID Panel Not Not Applicable Applicable Imipenem <=1 Susceptible Levofloxacin <=0.5 Susceptible Meropenem <=1 Susceptible Minocycline <=4 Susceptible Nitrofurantoin <=32 Susceptible Piperacillin/ <=8 Susceptible Tazobactam Trimethoprim/ <=0.5/9.5 Susceptible Sulfa Staphylococcus aureus Antibiotic JUDI Dilut JUDI Inter Ampicillin/ <=8/4 Susceptible Sulbactam Azithromycin <=2 Susceptible Cefepime <=4 Susceptible Ceftaroline <=0.5 Susceptible Ciprofloxacin <=1 Susceptible Imipenem <=4 Susceptible Levofloxacin <=1 Susceptible Nitrofurantoin <=32 Susceptible Oxacillin <=0.25 Susceptible Penicillin <=0.03 Susceptible Piperacillin/ <=8 Susceptible Tazobactam MICRO - Microbiology SUSCEPTIBILITY RESULTS Staphylococcus aureus Antibiotic JUDI Dilut JUDI Inter Trimethoprim/ <=0.5/9.5 Susceptible Sulfa Vancomycin 1 Susceptible Performing Locations *1: This test was performed at: [address], [address] , [facility] ([place]) 10-05-2023 Note . MICRO - Microbiology PROCEDURE: Urine Culture [*1] SOURCE: Urine BODY SITE: COLLECTED DATE/TIME: 10/02/2023 10:30 EST RECEIVED DATE/TIME: 10/03/2023 13:34 EST START DATE/TIME: 10/03/2023 13:34 EST FREE TEXT SOURCE: FINAL REPORTS Final Report [] Verified Date/Time/Personnel: 10/05/2023 08:31 EST >100,000 cfu/ml Escherichia coli PRELIMINARY REPORTS Preliminary Report [] Verified Date/Time/Personnel: 10/04/2023 10:48 EST >100,000 cfu/ml Escherichia coli JUDI to follow SUSCEPTIBILITY RESULTS Escherichia coli Antibiotic JUDI Dilut JUDI Inter Ampicillin >16 Resistant Ampicillin/ 16/8 Intermediate Sulbactam Aztreonam <=4 Susceptible Cefazolin 4 Susceptible Ciprofloxacin <=0.25 Susceptible Ertapenem <=0.5 Susceptible Gentamicin <=2 Susceptible ID Panel Not Not Applicable Applicable Imipenem <=1 Susceptible Levofloxacin <=0.5 Susceptible Meropenem <=1 Susceptible Minocycline <=4 Susceptible Nitrofurantoin <=32 Susceptible Piperacillin/ <=8 Susceptible Tazobactam Trimethoprim/ <=0.5/9.5 Susceptible Sulfa Performing Locations *1: This test was performed at: [address], [address]- , [facility] ([place]) 10-29-2022 Note HNO ID: [id number] Author: Stefanie Mcintosh MD Service: ? Author Type: Physician Type: Progress Notes Filed: 10/29/2022 9:40 AM Note Text: Blanca Jane is a 27 year old presenting with Follow Up and Fracture of the Left Foot HPI: Patient is here for follow-up left ankle fracture distal fibula. She is having no pain in the boot. Her right ankle is actually improved significantly the past week. Review of Systems Neurological: Negative for tingling, sensory change and focal weakness. No past medical history on file. No family history on file. Tobacco Use: Low Risk Smoking Tobacco Use: Never Smokeless Tobacco Use: Never Passive Exposure: Not on file Alcohol Use: Not on file Current Outpatient Medications Medication Sig busPIRone (BUSPAR) 5 mg tablet Take 5 mg by mouth twice daily. sertraline (ZOLOFT) 50 mg tablet sertraline 50 mg tablet TAKE 1 TABLET BY MOUTH DAILY amitriptyline (ELAVIL) 25 mg tablet Take 25 mg by mouth daily at bedtime. crutches, aluminum Use as directed. No current facility-administered medications for this visit. ALLERGIES No Known Allergies Ht 5' 3" (1.60m) Wt 160 lb (72.6kg) LMP 09/13/2022 BMI 28.35 kg/(m2). Physical Exam Musculoskeletal: Comments: Right ankle she has full range of motion and minimal tenderness over the ATF ligament. Normal strength and sensation. Left ankle minimal tenderness over the distal fibula. Full range of motion with normal strength in all directions. Neurovascular is intact distally. Repeat x-rays of the left ankle show stable healing fracture of the distal fibula. ASSESSMENT/PLAN: 1. Closed left ankle fracture, with routine healing, subsequent encounter - ICD9: V54.19, ICD10: S82.892D Patient instructed to wear the boot when she is at work or up and about for the next 2 weeks. She can take it off at night or when she is doing minimal activity around the house. After 2 weeks she can discontinue the boot and increase activity as tolerated. Follow-up here if she has further concerns. Stefanie Mcintosh MD [facility] 10-29-2022 Note HNO ID: [id number] Author: RT Tito(R) Service: Radiology Author Type: Technologist Type: Progress Notes Filed: 10/29/2022 9:21 AM Note Text: Radiology Service Progress Note PATIENT NAME: Blanca Jane DATE OF SERVICE: October 29, 2022 TIME: 9:21 AM PATIENT IDENTITY VERIFICATION COMPLETED USING TWO (2) IDENTIFIERS: Name and Date of confirmed by patient verbally. FALL SCREENING: Has the patient had 2 falls in the last year or 1 fall with injury or currently using an Ambulatory Assistive Device (Walker, Cane, Wheelchair, Crutches, etc.)? No PATIENT GENDER DATA: Female. status: : No status: N/A PATIENT RELEVANT IMPLANT DATA REVIEWED: Not Applicable RADIOLOGY DEPARTMENT: General X-ray: Exam(s) Completed: Lower Extremity X-Ray(s): Ankle, Left PERIPHERAL IV DATA: Not applicable SIGNED BY: RT Tito(R) October 29, 2022 9:21 AM [facility] 10-29-2022 History of Present illness Narrative Radiology Service Progress Note PATIENT NAME: Blanca Jane DATE OF SERVICE: October 29, 2022 TIME: 9:21 AM PATIENT IDENTITY VERIFICATION COMPLETED USING TWO (2) IDENTIFIERS: Name and Date of confirmed by patient verbally. FALL SCREENING: Has the patient had 2 falls in the last year or 1 fall with injury or currently using an Ambulatory Assistive Device (Walker, Cane, Wheelchair, Crutches, etc.)? No PATIENT GENDER DATA: Female. status: : No status: N/A PATIENT RELEVANT IMPLANT DATA REVIEWED: Not Applicable RADIOLOGY DEPARTMENT: General X-ray: Exam(s) Completed: Lower Extremity X-Ray(s): Ankle, Left PERIPHERAL IV DATA: Not applicable SIGNED BY: RT Tito(R) October 29, 2022 9:21 AM documented in this encounter [facility] 09-29-2022 Note HNO ID: [id number] Author: Stefanie Mcintosh MD Service: ? Author Type: Physician Type: Progress Notes Filed: 09/29/2022 9:15 AM Note Text: Blanca Jane is a 27 year old presenting with Follow Up of the Left Ankle (Lt ankle fx// decreased swelling 4/10 pain) HPI: Injury occurred last week. Slipped on steps and twisted both ankles has a fracture of the left lateral ankle. Was seen at urgent care. She is put in an stirrup brace and on crutches. Review of Systems Neurological: Negative for sensory change and focal weakness. No past medical history on file. No family history on file. Tobacco Use: Low Risk Smoking Tobacco Use: Never Smokeless Tobacco Use: Never Passive Exposure: Not on file Alcohol Use: Not on file Current Outpatient Medications Medication Sig busPIRone (BUSPAR) 5 mg tablet Take 5 mg by mouth twice daily. sertraline (ZOLOFT) 50 mg tablet sertraline 50 mg tablet TAKE 1 TABLET BY MOUTH DAILY amitriptyline (ELAVIL) 25 mg tablet Take 25 mg by mouth daily at bedtime. crutches, aluminum Use as directed. No current facility-administered medications for this visit. ALLERGIES No Known Allergies Pulse 106 Wt 160 lb (72.6kg) SpO2 97% LMP 09/13/2022 Physical Exam Musculoskeletal: Comments: Swelling and ecchymosis left ankle lateral malleolus. Tender distal fibula. Limited range of motion. Neurovascular is intact distally. X-rays show a spiral fracture of the distal fibula. Nondisplaced. Ankle mortise is intact. ASSESSMENT/PLAN: 1. Closed left ankle fracture, initial encounter - ICD9: 824.8, ICD10: S82.892A Patient was placed in a tall small walking boot. Patient is to wear the boot at all times other than to shower. She should use crutches for 1 to 2 weeks to assist with ambulation. Take Tylenol or Motrin for pain. Follow-up in 4 weeks for recheck. Stefanie Mcintosh MD [facility] 09-27-2022 Note HNO ID: [id number] Author: Carmen Olsen LPN Service: ? Author Type: LICENSED NURSE Type: Progress Notes Filed: 09/27/2022 4:40 PM Note Text: Air stirrup applied to left foot. Patient tolerate well. Carmen Olsen LPN [facility] 09-27-2022 Note HNO ID: [id number] Author: Harvinder Mckeon MD Service: ? Author Type: Physician Type: Progress Notes Filed: 09/27/2022 4:40 PM Note Text: Blanca Jane is a 27 year old female who presents with bilat ankle pain (Swelling from fall) She is a 19-year-old female presenting today with bilateral ankle and bilateral foot pain after injury over gi. She reports that she was in her porch when she missed a step twisting her ankles and feet. Left worse than right extremity. She has pain swelling bruising bilateral regions of both ankles and feet. She is able to bear weight. No prior injuries. History reviewed. No pertinent past medical history. There is no problem list on file for this patient. Current Outpatient Medications Medication Sig Dispense Refill busPIRone (BUSPAR) 5 mg tablet Take 5 mg by mouth twice daily. sertraline (ZOLOFT) 50 mg tablet sertraline 50 mg tablet TAKE 1 TABLET BY MOUTH DAILY amitriptyline (ELAVIL) 25 mg tablet Take 25 mg by mouth daily at bedtime. No current facility-administered medications for this visit. Social History Tobacco Use Smoking status: Never Smokeless tobacco: Never Alcohol Use: Not on file Tobacco Use: Never History reviewed. No pertinent family history. Review of Systems Constitutional: Negative for fever. Respiratory: Negative for shortness of breath. Cardiovascular: Negative for chest pain. Musculoskeletal: Injuries bilateral ankle and feet. Neurological: Negative for dizziness and headaches. BP 150/81 Pulse 97 Temp (Src) 97.2 (Temporal) Resp 16 Wt 160 lb (72.6kg) SpO2 98% LMP 09/13/2022 Physical Exam Vitals and nursing note reviewed. Constitutional: Comments: PHYSICAL EXAMINATION: GENERAL:The patient is alert oriented in no acute distress. HEAD:Head is atraumatic normocephalic. EYES: Normal sclerae and conjunctivae. LUNGS: No labored breathing. MUSCULOSKELETAL: Examination of the ankles revealed bruising, swelling and tenderness mainly over the lateral malleoli. Examination of the feet revealed bruising and swelling along the medial and lateral regions of feet. She is able to move her toes. Neurovascular status intact distally. Bilateral Achilles tendon intact. She has full dorsiflexion, plantarflexion, inversion and eversion with pain. Neurovascular status intact distally. She is ambulatory. SKIN: Warm and dry no clubbing cyanosis or edema. NEUROLOGY: Cranial nerves II through XII grossly intact without any focal neurological deficits. PSYCHIATRY: Cooperative. Normal mood and affect. X-ray showed fracture left lateral malleolus. Normal right ankle and bilateral feet. Second read by the radiologist is pending. Aircast placed in the left ankle. I wrote a prescription of crutches. Patient was instructed to follow-up with musculoskeletal clinic she will call first thing in the morning tomorrow and get an appointment. If she does not get an appointment in the next week or so she will call [email or web address], [facility]. Rest ice elevation. OTC pain medication recommended. Discharged in stable condition. ASSESSMENT/PLAN: 1. Sprain of ligament of left ankle, initial encounter - ICD9: 845.00, ICD10: S93.402A (primary diagnosis) - XR ANKLE GENERAL 3V AP/LAT/OBL LEFT 2. Sprain of left foot, initial encounter - ICD9: 845.10, ICD10: S93.602A - XR FOOT GENERAL 3V AP/LAT/OBL RIGHT - XR FOOT GENERAL 3V AP/LAT/OBL LEFT 3. Sprain of ligament of right ankle, initial encounter - ICD9: 845.00, ICD10: S93.401A - XR ANKLE GENERAL 3V AP/LAT/OBL RIGHT - XR ANKLE GENERAL 3V AP/LAT/OBL LEFT 4. Sprain of right foot, initial encounter - ICD9: 845.10, ICD10: S93.601A - XR FOOT GENERAL 3V AP/LAT/OBL RIGHT [facility] 09-27-2022 History of Present illness Narrative Air stirrup applied to left foot. Patient tolerate well. Carmen Olsen LPN Blanca Jane is a 27 year old female who presents with bilat ankle pain (Swelling from fall) She is a 19-year-old female presenting today with bilateral ankle and bilateral foot pain after injury over Thanksgiving. She reports that she was in her porch when she missed a step twisting her ankles and feet. Left worse than right extremity. She has pain swelling bruising bilateral regions of both ankles and feet. She is able to bear weight. No prior injuries. History reviewed. No pertinent past medical history. There is no problem list on file for this patient. Current Outpatient Medications Medication Sig Dispense Refill busPIRone (BUSPAR) 5 mg tablet Take 5 mg by mouth twice daily. sertraline (ZOLOFT) 50 mg tablet sertraline 50 mg tablet TAKE 1 TABLET BY MOUTH DAILY amitriptyline (ELAVIL) 25 mg tablet Take 25 mg by mouth daily at bedtime. No current facility-administered medications for this visit. Social History Tobacco Use Smoking status: Never Smokeless tobacco: Never Alcohol Use: Not on file Tobacco Use: Never History reviewed. No pertinent family history. Review of Systems Constitutional: Negative for fever. Respiratory: Negative for shortness of breath. Cardiovascular: Negative for chest pain. Musculoskeletal: Injuries bilateral ankle and feet. Neurological: Negative for dizziness and headaches. BP 150/81 Pulse 97 Temp (Src) 97.2 (Temporal) Resp 16 Wt 160 lb (72.6kg) SpO2 98% LMP 09/13/2022 Physical Exam Vitals and nursing note reviewed. Constitutional: Comments: PHYSICAL EXAMINATION: GENERAL:The patient is alert oriented in no acute distress. HEAD:Head is atraumatic normocephalic. EYES: Normal sclerae and conjunctivae. LUNGS: No labored breathing. MUSCULOSKELETAL: Examination of the ankles revealed bruising, swelling and tenderness mainly over the lateral malleoli. Examination of the feet revealed bruising and swelling along the medial and lateral regions of feet. She is able to move her toes. Neurovascular status intact distally. Bilateral Achilles tendon intact. She has full dorsiflexion, plantarflexion, inversion and eversion with pain. Neurovascular status intact distally. She is ambulatory. SKIN: Warm and dry no clubbing cyanosis or edema. NEUROLOGY: Cranial nerves II through XII grossly intact without any focal neurological deficits. PSYCHIATRY: Cooperative. Normal mood and affect. X-ray showed fracture left lateral malleolus. Normal right ankle and bilateral feet. Second read by the radiologist is pending. Aircast placed in the left ankle. I wrote a prescription of crutches. Patient was instructed to follow-up with musculoskeletal clinic she will call first thing in the morning tomorrow and get an appointment. If she does not get an appointment in the next week or so she will call [facility], [facility] or [facility] orthopedics. Rest ice elevation. OTC pain medication recommended. Discharged in stable condition. ASSESSMENT/PLAN: 1. Sprain of ligament of left ankle, initial encounter - ICD9: 845.00, ICD10: S93.402A (primary diagnosis) - XR ANKLE GENERAL 3V AP/LAT/OBL LEFT 2. Sprain of left foot, initial encounter - ICD9: 845.10, ICD10: S93.602A - XR FOOT GENERAL 3V AP/LAT/OBL RIGHT - XR FOOT GENERAL 3V AP/LAT/OBL LEFT 3. Sprain of ligament of right ankle, initial encounter - ICD9: 845.00, ICD10: S93.401A - XR ANKLE GENERAL 3V AP/LAT/OBL RIGHT - XR ANKLE GENERAL 3V AP/LAT/OBL LEFT 4. Sprain of right foot, initial encounter - ICD9: 845.10, ICD10: S93.601A - XR FOOT GENERAL 3V AP/LAT/OBL RIGHT Harvinder Mckeon documented in this encounter [facility] 09-27-2022 Instructions Harvinder Mckeon MD - 09/27/2022 4:15 PM EST Call [facility] and make a follow-up appointment with [facility]. The number is [phone] Option 1 OR [phone]. documented in this encounter [facility] Evaluation note Diagnosis Sprain of ligament of left ankle, initial encounter- Primary Sprain of left foot, initial encounter Sprain of ligament of right ankle, initial encounter Sprain of right foot, initial encounter Closed nondisplaced fracture of lateral malleolus of left fibula, initial encounter [facility] Pain Generalized pain [facility] Diagnosis Sprain of left foot, initial encounter Sprain of right foot, initial encounter Sprain of ligament of right ankle, initial encounter Sprain of ligament of left ankle, initial encounter [facility] Diagnostic Procedure Only (Routine) - Pending Review Specialty Diagnoses / Procedures Referred By Contalice t Referred To Contact XR IMAGING Diagnoses Sprain of ligament of left ankle, initial encounter Sprain of ligament of right ankle, initial encounter Procedures XR ANKLE GENERAL 3V AP/LAT/OBL LEFT RADEX ANKLE COMPLETE MINIMUM 3 VIEWS Harvinder Mckeon MD [address] [place] [address] Xr Imaging Referral ID Status Reason Start Date Expiration Date Visits Requested Visits Authorized [id number] Pending Review Auto-Generat ed Referral 2 10/27/2023 1 1 * Diagnostic Procedure Only (Routine) - Pending Review Specialty Diagnoses / Procedures Referred By Contac t Referred To Contact XR IMAGING Diagnoses Sprain of ligament of right ankle, initial encounter Procedures XR ANKLE GENERAL 3V AP/LAT/OBL RIGHT RADEX ANKLE COMPLETE MINIMUM [place] [address] [place] [address] Xr Imaging Referral ID Status Reason Start Date Expiration Date Visits Requested Visits Authorized [id number] Pending Review Auto-Generat ed Referral 2 10/27/2023 1 1 * Diagnostic Procedure Only (Routine) - Pending Review Specialty Diagnoses / Procedures Referred By Contac t Referred To Contact XR IMAGING Diagnoses Sprain of left foot, initial encounter Procedures XR FOOT GENERAL 3V AP/LAT/OBL LEFT RADEX FOOT COMPLETE MINIMUM 3 VIEWS Harvinder Mckeon MD [address] [place] [address] Xr Imaging Referral ID Status Reason Start Date Expiration Date Visits Requested Visits Authorized [id number] Pending Review Auto-Generat ed Referral 2 10/27/2023 1 1 * Diagnostic Procedure Only (Routine) - Pending Review Specialty Diagnoses / Procedures Referred By Contac t Referred To Contact XR IMAGING Diagnoses Sprain of left foot, initial encounter Sprain of right foot, initial encounter Procedures XR FOOT GENERAL 3V AP/LAT/OBL RIGHT RADEX FOOT COMPLETE MINIMUM [place] [address] [place] [id number] Xr Imaging Referral ID Status Reason Start Date Expiration Date Visits Requested Visits Authorized [id number] Pending Review Auto-Generat ed Referral 2 10/27/2023 1 1 [facility] for referral (narrative)* Diagnostic Procedure Only (Routine) - Closed Specialty Diagnoses / Procedures Referred By Contac t Referred To Contact XR IMAGING Diagnoses Pain Procedures XR ANKLE GENERAL 3V AP/LAT/OBL LEFT RADEX ANKLE COMPLETE MINIMUM 3 VIEWS Stefanie Mcintosh MD [address] [place] [phone] [place] [address] Referral ID Status Reason Start Date Expiration Date V isits Requested Visits Authorized [id number] Closed Auto-Generat ed Referral Patient Cleared - Admin/Chairm an/Director advise to proceed or did not respond 10/29/2022 10/31/2022 1 1 [facility] for visit Narrative* Diagnostic Procedure Only (Routine) - Closed Specialty Diagnoses / Procedures Referred By Contac t Referred To Contact XR IMAGING Diagnoses Pain Procedures XR ANKLE GENERAL 3V AP/LAT/OBL LEFT RADEX ANKLE COMPLETE MINIMUM 3 VIEWS Stefanie Mcintosh MD [address] [place] [phone] [place] [address] Referral ID Status Reason Start Date Expiration Date V isits Requested Visits Authorized [id number] Closed Auto-Generat ed Referral Patient Cleared - Admin/Chairm an/Director advise to proceed or did not respond 10/29/2022 10/31/2022 1 1 [facility] Summary Purpose Family History No Family History Records FoundNo Family History Records FoundNo Family History Records FoundNo Family History Records FoundNo Family History Records FoundNo Family History Records Found Advance Directives No Advanced Directives Records FoundNo Advanced Directives Records FoundNo Advanced Directives Records FoundNo Advanced Directives Records FoundNo Advanced Directives Records FoundNo Advanced Directives Records Found Reason for Referral Specialty Diagnoses / Procedures Referred By Contac t Referred To Contact XR IMAGING Diagnoses Sprain of ligament of left ankle, initial encounter Sprain of ligament of right ankle, initial encounter Procedures XR ANKLE GENERAL 3V AP/LAT/OBL LEFT RADEX ANKLE COMPLETE MINIMUM 3 VIEWS Harvinder Mckeon MD [address] [facility] [address] [place] [address] Referral ID Status Reason Start Date Expiration Date V isits Requested Visits Authorized [id number] Closed Auto-Generate d Referral 09/27/2022 10/31/2022 1 1 Specialty Diagnoses / Procedures Referred By Contac t Referred To Contact XR IMAGING Diagnoses Sprain of ligament of right ankle, initial encounter Procedures XR ANKLE GENERAL 3V AP/LAT/OBL RIGHT RADEX ANKLE COMPLETE MINIMUM 3 VIEWS Harvinder Mckeon MD [address] [place], [place] [address] [id number] [place] [address] Referral ID Status Reason Start Date Expiration Date V isits Requested Visits Authorized [id number] Closed Auto-Generate d Referral 09/27/2022 10/27/2023 1 1 Specialty Diagnoses / Procedures Referred By Contac t Referred To Contact XR IMAGING Diagnoses Sprain of left foot, initial encounter Procedures XR FOOT GENERAL 3V AP/LAT/OBL LEFT RADEX FOOT COMPLETE MINIMUM [place] [address] [place], [place] [id number] [place] [address] Referral ID Status Reason Start Date Expiration Date V isits Requested Visits Authorized [id number] Closed Auto-Generate d Referral 09/27/2022 10/31/2022 1 1 Specialty Diagnoses / Procedures Referred By Contac t Referred To Contact XR IMAGING Diagnoses Sprain of left foot, initial encounter Sprain of right foot, initial encounter Procedures XR FOOT GENERAL 3V AP/LAT/OBL RIGHT RADEX FOOT COMPLETE MINIMUM [place] [address] [place], [place] [phone] [place] [address] Referral ID Status Reason Start Date Expiration Date V isits Requested Visits Authorized [id number] Closed Auto-Generate d Referral 09/27/2022 10/27/2023 1 1 Additional Source Comments INFORMATION SOURCE (unrecogn ized section and content) DATE CREATED AUTHOR 04/25/2018 [facility] [place] DATE CREATED AUTHOR AUTHOR'S ORGANIZ ATION 10/29/2022 [facility] DATE CREATED AUTHOR AUTHOR'S ORGANIZ ATION 02/25/2023 [facility] DATE CREATED AUTHOR AUTHOR'S ORGANIZ ATION 05/17/2024 [facility] ([place] DATE CREATED AUTHOR AUTHOR'S ORGANIZ ATION 11/02/2024 [facility] DATE CREATED AUTHOR AUTHOR'S ORGANIZ ATION 04/19/2025 [facility] Source Comments (unrecognize d section and content) In the event this informatio n is protected by the Federal Confidentiality of Alcohol and Drug Abuse Patient Records regulations: The Federal rules restrict any use of the information to criminally investigate or prosecute any alcohol or drug abuse patient.[facility] the event this information is protected by the Federal Confidentiality of Alcohol and Drug Abuse Patient Records regulations: The Federal rules restrict any use of the information to criminally investigate or prosecute any alcohol or drug abuse patient.[facility] the event this information is protected by the Federal Confidentiality of Alcohol and Drug Abuse Patient Records regulations: The Federal rules restrict any use of the information to criminally investigate or prosecute any alcohol or drug abuse patient.[facility] Reason for Visit (unrecogniz ed section and content) Reason Comments bilat ankle pain Swelling from fall Specialty Diagnoses / Procedures Referred By Mckenzie t Referred To Contact XR IMAGING Diagnoses Sprain of ligament of left ankle, initial encounter Sprain of ligament of right ankle, initial encounter Procedures XR ANKLE GENERAL 3V AP/LAT/OBL LEFT RADEX ANKLE COMPLETE MINIMUM 3 VIEWS Harvinder Mckeon MD [address] [facility] [address] [place] [address] Referral ID Status Reason Start Date Expiration Date V isits Requested Visits Authorized [id number] Closed Auto-Generate d Referral 09/27/2022 10/31/2022 1 1 FOR RECORDS PERTAINING TO PATIENTS WHO ARE OR HAVE BEEN ENROLLED IN A CHEMICAL DEPENDENCY/SUBSTANCEABUSE PROGRAM, SOME INFORMATION MAY BE OMITTED. This clinical summary was aggregated from multiple sources. Caution should be exercised in using it in the provision of clinical care. This summary normalizes information from multiple sources, and as a consequence, information in this document may materially change the coding, format and clinical context of patient data. In addition, data may be omitted in some cases. CLINICAL DECISIONS SHOULD BE BASED ON THE PRIMARY CLINICAL RECORDS. [facility] [employer] [facility]. provides no warranty or guarantee [id number] the accuracy [phone] completeness of information in this [id number]
== END | disposition home or self-care (01) ==
PROVIDERS: Referring Provider Student in an Organized Health Care Education/Training Program; Visit Provider Student in an Organized Health Care Education/Training Program
DX: F32.A Depression, unspecified (principal)
CPT/HCPCS: 36415; 84439; 84443